=== PATIENT | female | born 1995 | race Caucasian/White ===

== ENCOUNTER → 2020-11-16 12:41 | Outpatient (CLI) | payer OTHER, SELFPAY ==
--- NOTE | ~2020-11-16 | MR_ITS ---
EXAMINATION: MR knee LT w con DATE: 11/16/2020 15:11 INDICATION: Meniscal tear with left knee pain TECHNIQUE: Magnetic resonance imaging (MRI) of the left knee was performed without intravenous contra st. Sequences included axial and coronal T2-weighted FS FSE, sagittal and coronal PD-weighted FS FSE , axial, sagittal and coronal T1-weighted FS FSE and axial and sagittal PD-weighted FSE, sagittal PD- weighted FS FSE and axial PD weighted fat saturated FSE. COMPARISON: None. FINDINGS: Medial compartment: Medial meniscus is normal. Articular cartilage is normal. Lateral compartment: Lateral meniscus is normal. Articular cartilage is normal. Patellofemoral compartment: Full-thickness chondral fissuring/fibrillation extending in a sagittally oriented band across the pat ellar apical ridge and medial side of the lateral patellar facet. The reason fissuring and measures a pproximately 2 cm craniocaudally and 1 cm in maximal medial to lateral dimensions. There are underlyi ng subarticular cystic changes. Trochlear cartilage is normal. Ligaments and tendons: Anterior and posterior cruciate ligaments are normal. The medial collateral ligament and fibular ronaldo ateral ligament complex are normal. There foci susceptibility artifact along the medial patellofemora l retinaculum and overlying subcutaneous fat consistent with provided history of prior retinacular re pair for recurrent patellar dislocations. The extensor mechanism is otherwise normal. The visualized medial and lateral hamstring tendons as well as the iliotibial band are normal. Osseous/other: Aside from the degenerative subarticular cystic change at the patella there is normal marrow signal t hroughout. No fracture or pathologic marrow replacing process. No loose osteochondral bodies. IMPRESSION: 1. 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 Remaining cartilage is normal with normal menisci and stabilizing ligaments of the knee. 3. Postoperative changes along the medial patellofemoral retinaculum reportedly for recurrent patella r dislocations. Correlate with surgical history. Reviewed, dictated and finalized at location A. IMPRESSION: 1. High-grade patellar chondral malacia with band of full thickness chondral fi ssuring/fibrillation underlying subarticular cystic changes at the apical ridge and medial side of the lateral facet 2. Remaining cartilage is normal with normal menisci and stabilizing ligaments of the knee. 3. Postoperative changes along the medial patellofemoral retinaculum reportedly for recurrent patellar dislocations. Correlate with surgical history.
--- NOTE | ~2020-11-16 | XR_ITS ---
EXAMINATION: XR fl inj knee LT for MR/CT DATE: 11/16/2020 15:21 INDICATION: Meniscal tear presenting with left knee pain TECHNIQUE: A time-out was performed to verify the patient's name, date of , and procedure to b e performed. The procedure including the risks, benefits, and alternatives was discussed with the pat ient. Risks discussed included bleeding and infection. The patient understood the risks and agreed to proceed. The skin overlying the lateral aspect of the patellofemoral articulation of the left knee joint was prepped and draped in usual sterile fashion. Anesthetic was administered with 1% lidocaine subcutaneously. A 22 G needle was advanced under fluoroscopic guidance into the joint. Injection 4 4 mL of 7:3:2 mixture of sterile saline:Omnipaque 240:1% lidocaine mixed 200:1 with 529 mg/mL Multiha nce gadolinium contrast was injected with intermittent fluoroscopy confirming intra-articular adminis tration. The needle was removed and the entry site was cleaned and dressed. There were no immediate complications. Fluoroscopy exposure time was 0.2 minutes. The total number of images was 8. FINDINGS: Real-time fluoroscopy demonstrates the needle in the left knee joint. IMPRESSION: 1. Left knee joint injection of dilute gadolinium contrast mixture for subsequent MRI arthrogram whic h will be dictated separately. Reviewed, dictated and finalized at location A. IMPRESSION: 1. Left knee joint injection of dilute gadolinium contrast mixture for subseque nt MRI arthrogram which will be dictated separately.
== END ==
PROVIDERS: PCP Family Medicine; Visit Provider Nurse Practitioner Adult Health
DX: S83.207A Unspecified tear of unspecified meniscus, current injury, left knee, initial encounter (principal); M94.262 Chondromalacia, left knee
CPT/HCPCS: 20610; 73722; 77002; A9577; Q9966